=== PATIENT | male | born 1970 | race American Indian/Alaskan Native ===

== ENCOUNTER 2016-08-29 12:42 | Outpatient (CLI) | payer BC ==
--- NOTE | 2016-08-29 14:57 | Magnetic Resonance Report ---
MRI of the lumbar spine without contrast. History: Lumbosacral radiculopathy. Procedure: Sagittal T1-weighted, T2-weighted, inversion recovery images, and axial T1 and T2-weighted images views in this study. Findings: The L1-2, L2-3, and L3-4 levels are unremarkable. At L4-5, there is loss of T2 signal within the discs, but no disc bulge or herniation is seen. At L5-S1, there is a left posterolateral disc herniation with moderate effacement of the anterolateral aspect of the thecal sac and impingement on the left S1 nerve root. There is mild narrowing of the disc space. There no significant bony abnormalities. Alignment is normal. The conus is normal. Impression: Left posterolateral disc herniation at L5-S1 with associated compressive changes as described above.
== END 2016-08-29 12:43 | disposition home or self-care (01) ==
LOC: MRI 12:42
PROVIDERS: ATTEND Orthopaedic Surgery
DX: M51.17 Intervertebral disc disorders with radiculopathy, lumbosacral region (principal); M47.27 Other spondylosis with radiculopathy, lumbosacral region
CPT/HCPCS: 72148

== ENCOUNTER 2016-10-03 07:26 | Observation (INO) | payer BC ==
[2016-10-01 09:56] LABS: Basophils % (Auto) 0.3 % (0.0-1.8); Eosinophils % (Auto) 2.5 % (0.0-4.3); Hemoglobin 13.2 gm/dl (11.8-15.2); Mean Corpuscular HGB Conc 33 % (32-34); Mean Corpuscular Hemoglobin 27 pg (28-32); Mean Corpuscular Volume 83 fl (84-94); Platelet Count 231 K/mm3 (140-440); Red Blood Count 4.81 M/mm3 (3.65-5.03); White Blood Count 4.5 K/mm3 (4.5-11.0)
[2016-10-01 10:15] LABS: Alanine Aminotransferase 20 units/L (7-56); Albumin 4.4 g/dL (3.9-5); Albumin/Globulin Ratio 1.5 %; Alkaline Phosphatase 45 units/L (35-129); Anion Gap 18 mmol/L; Blood Urea Nitrogen 19 mg/dL (9-20); Calcium 9.9 mg/dL (8.4-10.2); Carbon Dioxide 24 mmol/L (22-30); Chloride 102.5 mmol/L (98-107); Glucose 121 mg/dL (75-100); Sodium 140 mmol/L (137-145); Total Protein 7.3 g/dL (6.3-8.2)
--- NOTE | 2016-10-01 17:14 | Anesthesia Consultation ---
Anesthesia Consult and Med Hx Date of service: 10/03/16 - Airway Anesthetic Teeth Evaluation: Good, Chipped (top front) ROM Head & Neck: Adequate Mental/Hyoid Distance: Adequate Mallampati Class: Class II Intubation Access Assessment: Probably Good - Pulmonary Exam CTA: Yes - Cardiac Exam Cardiac Exam: RRR - Pre-Operative Health Status ASA Pre-Surgery Classification: ASA1, ASA2 Proposed Anesthetic Plan: General - Pulmonary Hx Smoking: No Hx Sleep Apnea: No (CONSUELO PRE SCREEN LOW RISK) - Cardiovascular System Hx Hypertension: No (elevated cholesterol) - Central Nervous System Hx Back Pain: Yes (TO LEFT LEG PAIN) - Other Systems Hx Cancer: No - Additional Comments Anesthesia Medical History Comments: glaucoma
--- NOTE | 2016-10-02 15:39 | History and Physical Report ---
History of Present Illness Date of examination: 10/01/16 Date of admission: 10/03/16 Chief complaint: Low back pain, left leg pain. History of present illness: 46-year-old man with complaints of low back pain with pain radiating the left leg, activity related and is numbness to the dorsal lateral aspect of the left foot. Treated with physical therapy program, anti-inflammatories and pain management. Symptoms persisted and MR scan confirmed a herniated disc at L5-S1 , degenerative disc L4-L5 and L5-S1. The admitted for laminectomy and discectomy. Past History Past Medical History: hyperlipidemia Medications and Allergies Allergies Allergy/AdvReac Type Severity Reaction Status Date / Time Sulfa (Sulfonamide Allergy Hives Verified 09/27/16 14:55 Antibiotics) Home Medications Medication Instructions Recorded Confirmed Last Taken Type Rosuvastatin Calcium [Crestor] 40 mg PO QHS 09/27/16 09/27/16 Unknown History traMADol [Ultram] 50 mg PO Q6HR PRN 09/27/16 09/27/16 Unknown History HYDROcodone/APAP 5-325 [[place] 1 each PO Q6HR PRN 10/01/16 10/01/16 Unknown History 5/325] Active Meds: Active Medications Famotidine (Pepcid) 20 mg PO PREOP NR Stop: 10/03/16 23:59 Lactated Ringer's (Lactated Ringers) 1,000 mls @ 75 mls/hr IV DIRECT FERNIE Stop: 10/03/16 23:59 Cefazolin Sodium (Ancef/Sterile Water 2 Gm/20 Ml) 2 gm in 20 mls @ 80 mls/hr IV PREOP NR PRN Reason: Protocol Stop: 10/03/16 15:00 Midazolam HCl (Versed) 2 mg IV PREOP NR Stop: 10/03/16 23:59 Review of Systems All systems: negative Exam - Constitutional Vitals: Temp Pulse Resp BP Pulse Ox 97.5 F L 76 20 102/60 10/01/16 09:30 10/01/16 09:30 10/01/16 09:30 10/01/16 09:30 General appearance: Present: no acute distress, well-nourished - EENT Eyes: Present: PERRL ENT: hearing intact, clear oral mucosa - Neck Neck: Present: supple, normal ROM - Respiratory Respiratory effort: normal Respiratory: bilateral: CTA - Cardiovascular Heart Sounds: Present: S1 & S2. Absent: rub, click - Extremities Extremities: pulses symmetrical, No edema, abnormal (Lumbar spine with reversal lordosis, moderate generalized tenderness, no deformity. Forward flexion to knee, extension 20 rotations bending 20. Straight-leg raising positive the left at 6070 degrees right 80. Wilfred test negative, numbness along the left posterolateral calf extending into the foot. Weakness left their on a and EHL, and the tibial grade 5, symmetrical bilateral. Reflexes diminished left ankle otherwise within normal limits. Tone and coordination unremarkable, pulse palpated unremarkable.) Peripheral Pulses: within normal limits - Abdominal General gastrointestinal: Present: soft, non-tender, non-distended, normal bowel sounds Male genitourinary: Present: normal - Integumentary Integumentary: Present: clear, warm, dry - Musculoskeletal Musculoskeletal: gait normal, strength equal bilaterally - Psychiatric Psychiatric: appropriate mood/affect, intact judgment & insight - Neurologic Neurologic: CNII-XII intact, moves all extremities Results - Labs CBC & Chem 7: 10/01/16 09:30 10/01/16 09:30 Assessment and Plan - Patient Problems (1) Lumbar disc herniation with radiculopathy Status: Acute Plan to address problem: Laminectomy, discectomy L5-S1,? L4-L5. Procedure, complications and Suraj discussed with.
[~2016-10-03 07:26] MED LIST: ANCEF/STERILE WATER 2 GM/20 ML 2 GM/20 ML SYRINGE IV NR; ANCEF/STERILE WATER 2 GM/20 ML IV NR; LACTATED RINGERS 1,000 ML IV SCH; PEPCID PO NR; VERSED IV NR
[2016-10-03] MEDS ORDERED: ZOFRAN ONE (07:35)
[2016-10-03] MEDS ORDERED: DIPRIVAN 10 MG/ML IV ONE (07:35)
[2016-10-03] MEDS ORDERED: XYLOCAINE MPF 2% ONE (07:35)
[2016-10-03] MEDS ORDERED: ZEMURON IV ONE (07:35)
[2016-10-03] MEDS ORDERED: SUBLIMAZE ONE (07:35)
[2016-10-03] MEDS ORDERED: XYLOCAINE 1%/ EPI 1:100,000 INFILTRATI ONE (08:08)
[2016-10-03] MEDS ORDERED: GELFOAM TP ONE (08:08)
[2016-10-03] MEDS ORDERED: THROMBIN (BOVINE) TP ONE (08:10)
[2016-10-03] MEDS ORDERED: NEURONTIN PO NR (09:00)
[2016-10-03] MEDS ORDERED: NACL BACTERIOSTATIC INFILTRATI ONE (09:03)
--- NOTE | 2016-10-03 09:35 | Anesthesia Day of Surgery ---
Anesthesia Day of Surgery - Day of Surgery Patient Examined: Yes Patient H&P Reviewed: Yes Patient is NPO: Yes
[2016-10-03] MEDS ORDERED: DEPO-MEDROL ONE ×2 (09:36→10:58)
[2016-10-03] MEDS ORDERED: MARCAINE 0.5% 30 ML INFILTRATI ONE (09:37)
[2016-10-03] MEDS ORDERED: TORADOL ONE (09:37)
[2016-10-03] MEDS ORDERED: TORADOL IV ONE ×2 (10:30→11:05)
[2016-10-03] MEDS ORDERED: MARCAINE 0.5% INFILTRATI ONE ×2 (10:30→11:05)
[2016-10-03] MEDS ORDERED: DEPO-MEDROL INTRA-ARTI ONE ×2 (10:31→11:05)
[2016-10-03] MEDS ORDERED: NACL 0.9% 1000 ML 1,000 ML ONE (10:34)
[2016-10-03] MEDS ORDERED: DECADRON ONE (10:59)
[2016-10-03] MEDS ORDERED: DECADRON IV ONE (11:02)
--- NOTE | 2016-10-03 11:20 | Procedure Note ---
Date of procedure: 10/03/16 Pre-op diagnosis: Herniated disc L5-S1 Post-op diagnosis: same Procedure: Laminectomy/ discetomy L5-s1 Anesthesia: GETA Surgeon: ALTA CACERES Estimated blood loss: minimal Pathology: list (disc) Specimen disposition: to lab Condition: stable Disposition: PACU
[2016-10-03] MEDS ORDERED: NEOSTIGMINE ONE (11:23)
[2016-10-03] MEDS ORDERED: ROBINUL ONE (11:23)
--- NOTE | 2016-10-03 11:23 | Discharge Summary ---
Providers - Providers Date of Admission: 10/03/16 Date of discharge: 10/04/16 Attending physician: ALTA CACERES Primary care physician: INDRA PUENTE Hospitalization Reason for admission: Herniated disc L5-S1 Condition: Stable Procedures: lumbar laminectomy, discectomy L5-S1 left Hospital course: uneventful, no complications Disposition: [place]-[id number] TO HOME OR SELFCARE - Discharge Diagnoses (1) Lumbar disc herniation with radiculopathy Status: Acute Core Measure Documentation - Palliative Care Palliative Care/ Comfort Measures: Not Applicable - Core Measures Any of the following diagnoses?: none Exam - Constitutional Vitals: Temp Pulse Resp BP Pulse Ox 98.3 F 60 16 109/69 100 10/03/16 09:15 10/03/16 09:15 10/03/16 09:15 10/03/16 09:15 10/03/16 09:15 Plan Activity: no driving until cleared by PCP, other Weight Bearing Status: Full Weight Bearing Diet: regular Wound: per your surgeon's advice Follow up with: INDRA PUENTE MD [Primary Care Provider] - 7 Days ALTA CACERES MD [Staff Physician] - 7 Days
--- NOTE | 2016-10-03 12:03 | Operative Report ---
PREOPERATIVE DIAGNOSIS: Herniated disk at L5-S1 with left radiculopathy. POSTOPERATIVE DIAGNOSIS: Herniated disk at L5-S1 with left radiculopathy. OPERATIVE PROCEDURE: Lumbar laminectomy with diskectomy, L5-S1. SURGEON: Marv Prasad MD FABRICATION LEAD: Lisa Smith CSA. ANESTHESIA: General. BLOOD LOSS: Less than 50 mL. PROCEDURE IN DETAIL: The patient was taken to surgery suite, satisfactory analgesia obtained with general anesthetic. He was positioned using the [place] frame. Bony prominences satisfactorily padded. Lumbar region prepped with ChloraPrep, satisfactorily draped in the standard fashion. The correct patient, procedure and sites were confirmed. Midline incision was then made centering over the spinous process of L5 through S2. Incision was deepened through thickness of skin and subcutaneous. Thoracolumbar fascia was incised and is elevated subperiosteally over the left where the patient is symptomatic. Fluoroscopy was carried out and the L5-S1 space was confirmed. The ligament of flavum structures then elevated from the posterior arch of L5. Cotton pad_ was inserted to protect thedural structures and the laminotomy was then completed. The L5-S1 nerve root was identified which was retracted to the midline, lateral recess was packed with cottonoids. Epidural veins were cauterized and the disk was visualized, which appeared protruding into the thecal sac. Incision was made into the posterior longitudinal ligament and the disk space was then tied. Disk was then evacuated using pituitary forceps, disk space gently corrected with the ring curette to remove any loose fragments and decompression was completed. Decompression appeared adequate. Wound was then irrigated. Neural foramina was explored and no retained fragments were identified. The laminotomy defect was covered with Gelfoam and 40 mg of Decadron was administered into the epidural space. Wound was then closed in layers in the standard fashion using 0 Vicryl, 2-0 Vicryl and the standard skin closure. Paravertebral musculatures and thoracolumbar fascia was then infiltrated with 20 mL of 0.25% Marcaine plain and 30 mg of Toradol and 4 mg of morphine proposed postop pain control. Sterile dressings placed. The patient was transferred to recovery room having tolerated the procedure well and at the completion of procedure, counts were accurate. The patient will be discharged when his antibiotics doses are completed. HOMEGOING INSTRUCTIONS: Sedentary activity level. Wound care. Follow up at the office in 7 to 10 days. JOB# [id number] MARIPOSA/SADIQ SINGH
[2016-10-03] MEDS ORDERED: PERCOCET 5/325 PO PRN (13:17)
[2016-10-03] MEDS ORDERED: ZOFRAN IV PRN (13:17)
[2016-10-03] MEDS ORDERED: PHENERGAN PR PRN (13:17)
[2016-10-03] MEDS ORDERED: NACL 0.9% 1000 ML 1,000 ML IV SCH (13:17)
[2016-10-03] MEDS ORDERED: TYLENOL PO PRN (13:17)
[2016-10-03] MEDS ORDERED: ALUM-MAG HYDROX-SIMETH 200-200-20MG/5ML PO PRN (13:17)
[2016-10-03] MEDS ORDERED: FLEXERIL PO PRN (13:17)
[2016-10-03] MEDS ORDERED: MILK OF MAGNESIA PO PRN (13:17)
--- NOTE | 2016-10-03 13:51 | Admit Criteria Form ---
Admission Criteria Documentation: AMBULATORY SURGERY EXCEPTION CRITERIA Ambulatory Surgery Exception Criteria ( Place 'X' for any and all applicable criteria): Surgery or procedure performed on ambulatory basis may require inpatient stay for[A] ANY ONE of the following(1)(2)(3)(4)(5)(6)(7)(8)(9): [X] I. A preoperative situation, condition, or finding that warrants inpatient stay as indicated by ANY ONE of the following: [X] a) Inpatient care needed because of severity of a disease or condition rather than the surgery (eg, severe cardiac or respiratory disease, severe infection) (15) (16 ) (17) (18) [] b) Emergent procedure (eg, angioplasty for acute ischemia)(19) [] c) Complex surgical approach or situation as indicated by ANY ONE of the following(3): [] i) Open approach needed instead of usual endoscopic, transcatheter, or other less invasive procedure [] ii) Difficult approach because of previous operation [] iii) Airway monitoring required after open neck procedures(20)(21) [] iv) Large mass requiring unusually extensive dissection [] v) Additional complicating feature requiring inpatient care (eg, drain management)(22(23): [] d) Major surgery in a pt with high anesthetic risk as indicated by ANY ONE of the following (2)(3)(5)(7)(8): [] i) ASA risk class III or higher (severe systemic disease impairing function) [D] [] ii) Advanced age (eg, older than 85 years)(14)(24) [] iii) Symptomatic heart failure(25) [] iv) Symptomatic asthma or COPD(8)(21) [] v) Morbid obesity with hemodynamic or respiratory problems(20)( 21)(26)(27) [] vi) Obstructive sleep apnea(20)(21) [] vii) Former premature infants who are younger than 60 weeks [] viii) High risk for severe postoperative abnormalities (eg, severe postoperative hypocalcemia after parathyroidectomy for severe hyperparathyroidism)(27)( 28) [] ix) Unstable angina(25) [] e) Drug-related risk requiring inpatient stay as indicated by ANY ONE of the following(5)(10)(14)(32)(33) [] i) Procedure requires discontinuing drugs or other therapy (eg , antiarrhythmic medication, antiseizure medication), which necessitates inpatient observation or treatment.(18)(31) [] ii) Major surgery and high risk drug use as indicated by ANY ONE of the following: [] 1) Active abuse of cocaine or similar drug [] 2) Monoamine oxidase inhibitor use [] 3) Other drug identified as posing risk [] f) Inadequate outpatient care situation as indicated by ANY ONE of the following(5)(10)(14)(32)(33) [] i) Patient lives remote from medical facility and procedure has urgent complication potential, and temporary nearby residence cannot be arranged [] ii) Patient will have postprocedure incapacitation and inadequate assistance at home, or alternative level of care cannot be arranged. [] iii) Patient will have long general anesthesia or procedure side effect resolution time, and competent person to stay with patient on first postoperative night at home or alternative level of care cannot be arranged. []iv) Other inadequate outpatient situation that cannot be handled by other means [] II. A perioperative event, condition, or finding that warrants inpatient stay as indicated by ANY ONE of the following (1)(2)(3): [] a) Inadequate physiologic recovery: cardiovascular, respiratory, or hemodynamic status not normal or near preoperative baseline(18) [] b) Hemodynamic instability [] c) Patient not alert with near normal or baseline mental status [] d) Temperature not normal or as expected and not appropriate for outpatient treatment of condition [] e) Ambulatory or appropriate activity level status not yet achieved post procedure [E](34)(35)(36) [] f) Operative site not appropriate (eg, unexpected or excessive drainage or bleeding) [] g) Postoperative effects not resolved or adequately managed (eg, significant pain or vomiting not appropriate for outpatient or next level of care)(10)(12) [] h) Complicating features requiring inpatient care as indicated by ANY ONE of the following(37): [] i) Severe complications of procedure (eg, bowel injury, airway compromise, vascular injury,severe hemorrhage) [] ii) Extensive (eg, dissection far beyond usual scope of procedure ) or prolonged (eg, 120 minutes beyond usual) surgery needed requiring inpatient postoperative care [] iii) Conversion to an open or complex procedure that requires inpatient care (eg, open vs laparoscopic cholecystectomy, abdominal vs vaginal hysterectomy)(38) [] iv) Comorbid condition or test result identified during or post procedure that requires inpatient care (7) [] v) Malignant hyperthermia(30) [] vi) Other complicating feature requiring inpatient care(22)(23) Inpatient stay may be needed until ALL of the following are present (1)(2)(3)(4) (5)(6)(10)(14)(33)(40): []a) Physiologic recovery: cardiovascular, respiratory, and hemodynamic status normal or near preoperative baseline []b) Hemodynamic stability []c) Patient alert, with near normal or baseline mental status []d) Temperature appropriate: patient afebrile or temperature appropriate for outpt treatment of condition []e) Activity level appropriate: ambulatory or appropriate activity level post procedure []f) Operative site appropriate as indicated by ALL of the following: []i) Site dry or with expected drainage []ii) Any blood noted is as expected for procedure. []g) Postoperative effects resolved or managed as indicated by ALL of the following: []i) Pain management appropriate for outpatient (or next level of) care(10) []ii) Minimal nausea and vomiting: if present, successfully treated with oral medication(12) []iii) Headache, dizziness, or drowsiness (if present) are mild. []h) Voiding status acceptable as indicated by ANY ONE of the following: []i) Voiding spontaneously []ii) No voiding but instructions given for follow-up in 6 to 8 hours []iii) Urinary catheter in place, and instructions given for follow-up []i) Complicating features requiring inpatient care manageable at a lower level of care(37) []j) Comorbid conditions manageable at a lower level of care(37) The original [employer] content created by [employer] has been revised. The portions of the content which have been revised are identified through the use of italic text or in bold, and [employer] has neither reviewed nor approved the modified material. All other unmodified content is copyright [employer]. Please see references footnoted in the original [employer] edition 2016 Admission Criteria Met: Yes
[2016-10-03] MEDS: ANCEF/NS 1 GM/50 ML 1 GM/50 ML BAG IV SCH (18:07)
[2016-10-03] MEDS ORDERED: PEPCID PO SCH (22:00)
[2016-10-03] MEDS ORDERED: COLACE PO SCH (22:00)
[2016-10-03 23:51] VITALS: BP 100/53
[2016-10-04] MEDS: ANCEF/NS 1 GM/50 ML 1 GM/50 ML BAG IV SCH (01:27)
--- NOTE | 2016-10-04 07:19 | Progress Note ---
Assessment and Plan Alert orientated in nad OOB neuro intact pain ok DC today Subjective Date of service: 10/04/16 Objective Vital signs: Vital Signs - 12hr 10/03/16 23:50 Temperature 97.6 F Pulse Rate [ 50 L From Monitor] Respiratory 16 Rate Blood Pressure 100/53 [Left Arm] O2 Sat by Pulse 99 Oximetry - Labs CBC & BMP: 10/01/16 09:30 10/01/16 09:30
--- NOTE | 2016-10-04 08:26 | XRay Report ---
X-RAY LUMBAR SPINE THREE VIEWS: 10/03/16 CLINICAL: Fluoroscopic images at time of lumbar laminectomy. FINDINGS: A lateral criminal analyst is centered at L5-S1. Metal instruments marked level on a subsequent image.
== END 2016-10-04 07:32 | disposition home or self-care (01) ==
LOC: OR 07:26 → 2B-SURG 11:10
PROVIDERS: ADMIT Orthopaedic Surgery; ATTEND Orthopaedic Surgery
DX: M51.16 Intervertebral disc disorders with radiculopathy, lumbar region (principal); E78.5 Hyperlipidemia, unspecified
CPT/HCPCS: 36415; 63030; 72020; 80053; 85025; 86850; 86900; 86901; 88304; 96365; 96366; 97161; A4649; G0378; J0690; J1030; J1100; J1885; J2250; J2405; J2704; J2710; J3010; J7030; J7120

== ENCOUNTER 2019-05-27 07:21 | Outpatient (CLI) | payer BC ==
[2019-05-27 07:54] LABS: Hematocrit 43.8 % (35.5-45.6); Hemoglobin 14.7 gm/dl (11.8-15.2); Mean Corpuscular HGB Conc 34 % (32-34); Mean Corpuscular Volume 83 fl (84-94); Platelet Count 237 K/mm3 (140-440); Red Blood Count 5.27 M/mm3 (3.65-5.03)
[2019-05-27 08:08] LABS: Alanine Aminotransferase 17 units/L (7-56); Albumin 4.8 g/dL (3.9-5); BUN/Creatinine Ratio 19; Blood Urea Nitrogen 17 mg/dL (9-20); Calcium 10.2 mg/dL (8.4-10.2); Chol/HDL Ratio 3.73 %; HDL Cholesterol 76 mg/dL (40-59); Hemolysis Index 2; LDL Cholesterol,Direct 204 mg/dL (50-130)
--- NOTE | 2019-05-27 09:01 | XRay Report ---
CHEST 2 VIEWS INDICATION: Routine physical. COMPARISON: None available FINDINGS: Support devices: None. Heart: Within normal limits. Lungs/pleura: No acute air space or interstitial disease. No pneumothorax. Additional findings: None. IMPRESSION: Normal chest x-ray LUMBOSACRAL SPINE 5 VIEWS INDICATION: DUE TO BACK PAIN. COMPARISON: None. IMPRESSION: Normal alignment. Mild discogenic DJD is identified at L3-4. Moderate discogenic DJD is identified at L5-S1. The facet joints are unremarkable. No significant neural foraminal narrowing is noted on the oblique images. No acute osseous or soft tissue abnormality. BILATERAL KNEES 3 VIEWS INDICATION: Bilateral knee pain. COMPARISON: None. IMPRESSION: No acute osseous or soft tissue abnormality. No significant DJD. Signer Name: Carlo Rehman Jr, MD Signed: 05/27/2019 8:57 AM Workstation Name: [id number]
[2019-05-27 09:09] LABS: Erythrocyte Sedimentation Rate 2 mm/Hr (0-20)
[2019-05-30 13:27] LABS: Vitamin D, 25-OH, D2 <4 ng/mL
== END 2019-05-27 07:22 | disposition home or self-care (01) ==
LOC: XRAY 07:21
PROVIDERS: ATTEND Internal Medicine Hematology & Oncology
DX: Z00.00 Encounter for general adult medical examination without abnormal findings (principal); M51.37 Other intervertebral disc degeneration, lumbosacral region; M25.561 Pain in right knee; M25.562 Pain in left knee
CPT/HCPCS: 36415; 71046; 72110; 80053; 80061; 82306; 83036; 84153; 85027; 85652

== ENCOUNTER 2020-02-22 10:01 | Outpatient (CLI) | payer BC ==
--- NOTE | 2020-02-22 13:10 | Magnetic Resonance Report ---
MRI BRAIN WITHOUT AND WITH CONTRAST INDICATION / CLINICAL INFORMATION: PERSISTENT HEADACHES, WITH NAUSEA. TECHNIQUE: Multiplanar, multisequence MR images of the brain were obtained. The patient received 15 mL IV ProHan ce. COMPARISON: None available. FINDINGS: BRAIN / INTRACRANIAL CONTENTS: No acute ischemia, acute hemorrhage, mass effect, midline shift, or hy drocephalus. No chronic infarct or significant atrophy. No significant demyelinating changes. No abn ormal enhancement. CRANIOCERVICAL JUNCTION: No significant abnormality. VASCULAR FLOW-VOIDS: No significant abnormality. ORBITS: No significant abnormality of visualized orbits. SINUSES / MASTOIDS: No significant abnormality of visualized sinuses and mastoid air cells. ADDITIONAL FINDINGS: None. IMPRESSION: 1. No acute or concerning findings. No findings to explain the patient's symptoms. Signer Name: Germain Cole MD Signed: 02/22/2020 1:06 PM Workstation Name: [id number]
--- NOTE | 2020-02-22 15:18 | XRay Report ---
XR finger(s) 2+V BILAT INDICATION / CLINICAL INFORMATION: PAIN IN FINGER. COMPARISON: None available. FINDINGS: No acute fracture. Normal alignment. Joint spaces are preserved. No destructive osseous lesion or s uspicious periosteal reaction. Impression: 1.No significant osseous abnormality. Signer Name: Richmond Do MD Signed: 02/22/2020 3:14 PM Workstation Name: [id number]
== END 2020-02-22 10:02 | disposition home or self-care (01) ==
LOC: MRI 10:01
PROVIDERS: ATTEND Internal Medicine Hematology & Oncology
DX: G44.52 New daily persistent headache (NDPH) (principal); R11.0 Nausea; M79.645 Pain in left finger(s); M79.644 Pain in right finger(s)
CPT/HCPCS: 70553; 73140; A9577

== ENCOUNTER 2020-07-13 09:29 | Outpatient (CLI) | payer BC ==
--- NOTE | 2020-07-13 10:49 | XRay Report ---
CHEST 2 VIEWS INDICATION: COUGH. COMPARISON: 05/27/2019 FINDINGS: Support devices: None. Heart: Within normal limits. Lungs/pleura: No acute air space or interstitial disease. No pneumothorax. Additional findings: None. IMPRESSION: No acute findings. Signer Name: Carlo Rehman Jr, MD Signed: 07/13/2020 10:45 AM Workstation Name: [id number]
[2020-07-13 11:02] LABS: Basophils % (Auto) 0.3 % (0.0-1.8); Eosinophils # (Auto) 0.1 K/mm3 (0.0-0.4); Hematocrit 42.7 % (35.5-45.6); Hemoglobin 14.4 gm/dl (11.8-15.2); Lymphocytes # (Auto) 1.8 K/mm3 (1.2-5.4); Lymphocytes % (Auto) 41.4 % (13.4-35.0); Mean Corpuscular HGB Conc 34 % (32-34); Mean Corpuscular Volume 84 fl (84-94); Monocytes # (Auto) 0.4 K/mm3 (0.0-0.8); Monocytes % (Auto) 8.4 % (0.0-7.3); Platelet Count 230 K/mm3 (140-440); Red Blood Count 5.06 M/mm3 (3.65-5.03); Red Cell Distribution Width 14.8 % (13.2-15.2)
[2020-07-13 11:23] LABS: Alanine Aminotransferase 18 units/L (7-56); Albumin 4.4 g/dL (3.9-5); BUN/Creatinine Ratio 17; Blood Urea Nitrogen 17 mg/dL (9-20); Calcium 10.1 mg/dL (8.4-10.2); Chol/HDL Ratio 4.74 %; HDL Cholesterol 59 mg/dL (40-59); Hemolysis Index 7; LDL Cholesterol,Direct 217 mg/dL (50-130)
== END 2020-07-13 09:30 | disposition home or self-care (01) ==
LOC: XRAY 09:29
PROVIDERS: ATTEND Internal Medicine Hematology & Oncology
DX: R05 Cough (principal)
CPT/HCPCS: 36415; 71046; 80053; 80061; 82306; 83036; 84145; 84153; 85025

== ENCOUNTER 2020-07-13 10:30 | Outpatient (CLI) | payer BC ==
[2020-07-13] MEDS ORDERED: COVID-19 VACC, MRNA(PFIZER)/PF 30 MCG/0.3 ML IM ONE (12:45)
== END 2020-07-13 10:31 | disposition home or self-care (01) ==
LOC: COVVAC 10:30
PROVIDERS: ATTEND Internal Medicine Hematology & Oncology
DX: Z23 Encounter for immunization (principal)
CPT/HCPCS: 0001A